=== PATIENT | female | born 1965 | race Caucasian/White ===

== ENCOUNTER 2016-06-21 08:23 | Emergency (ER) | payer OTHER ==
[2016-06-21 08:36] VITALS: BP 160/100; PULSE 109; RESP 20; TEMP 98; O2SAT 94
--- NOTE | 2016-06-21 08:48 | CPEKG ---
Heart Rate: 96 RR Interval: 625 P-R Interval: 136 QRSD Interval: 78 QT Interval: 356 QTC Interval: 450 P Broadway: 41 QRS Broadway: 62 T Wave Broadway: 26 EKG Severity - NORMAL ECG - EKG Impression: SINUS RHYTHM Electronically Signed By: Cm Zapata 21-Jun-2016 09:04:26
[2016-06-21] MEDS ORDERED: ASPIRIN 81 MG CHEWABLE TAB PO ONE (08:55)
[2016-06-21 09:07] LABS: % IMMATURE GRANULYOCYTES 0.5 % (0.0-1.1); ABSOLUTE IMMATURE GRANULOCYTES 0.03 10^3/uL (0.00-0.10); ADD DIFF? NO; ADD MORPH? NO; ADD SCAN? NO; ATYPICAL LYMPHOCYTE FLAG 20 (0-99); FRAGMENT RBC FLAG 0 (0-99); HEMATOCRIT 37.6 % (38.0-47.0); HEMOGLOBIN 11.5 g/dL (12.6-16.3); LEFT SHIFT FLG 0 (0-99); LIPEMIA HEMOLYSIS FLAG 80 (0-99); MEAN CELL HEMOGLOBIN 23.7 pg (27.9-34.1); MEAN CELL HEMOGLOBIN CONCENTR. 30.6 g/dL (32.4-36.7); MEAN CELL VOLUME 77.4 fL (81.5-99.8); MEAN PLATELET VOLUME 10.1 fL (8.7-11.7); PLATELET CLUMPS FLAG 0 (0-99); PLATELET COUNT 270 10^3/uL (150-400); RED BLOOD CELL COUNT 4.86 10^6/uL (4.18-5.33); RED CELL DISTRIBUTION WIDTH 16.3 % (11.5-15.2)
[2016-06-21 09:16] LABS: ALANINE AMINOTRANSFERASE 24 IU/L (9-52); ALKALINE PHOSPHATASE 57 IU/L (38-126); ANION GAP 11 mEq/L (8-16); ASPARTATE AMINOTRANSFERASE 21 IU/L (14-46); BILIRUBIN,TOTAL 0.5 mg/dL (0.1-1.4); CALCIUM 9.1 mg/dL (8.5-10.4); CARBON DIOXIDE 25 mEq/l (22-31); CHLORIDE 106 mEq/L (97-110); CREATININE 0.8 mg/dL (0.6-1.0); GLOMERULAR FILTRATION RATE > 60; GLUCOSE 107 mg/dL (70-100); SODIUM 142 mEq/L (134-144); TOTAL PROTEIN 7.2 g/dL (6.3-8.2)
[2016-06-21 09:29] LABS: TROPONIN I < 0.012 ng/mL (0-0.034)
--- NOTE | 2016-06-21 09:49 | UCPHY ---
H & P Patient Type: New Chief Complaint Nursing Narrative: c/o CP/Lt arm pain rad up to shoulder since Sunday night - has been moving but is concerned it is her heart due to father having [place] Time Seen by Provider: 06/21/16 09:27 HPI/ROS: This patient presents with a chief complaint of chest pain which involves primarily her left shoulder and also the upper left thoracic back. She is concerned about a cardiac event given her family has a history of heart problems. Symptoms began 3 days ago. The pain is not affected by movement of the left upper extremity but she has noticed tenderness in the upper thoracic back on the left. She denies cough, shortness of breath, nausea, vomiting or diaphoresis. She has no some numbness and tingling in the left upper extremity but also in the toes and fingers on the other 3 extremities. There is no relationship of the pain to movement, position or breathing. She denies any pain or swelling in the lower extremities. REVIEW OF SYSTEMS: Constitutional: Fatigue, no fever Eyes: No complaints ENT: Denies sore throat, had denies ear pain, mild congestion Respiratory: No cough, no shortness of breath Cardiac: See above Gastrointestinal: No nausea, no vomiting, no abdominal pain or diarrhea Genitourinary: Not addressed Musculoskeletal: Upper left back pain Skin: No rash Neurological: No headache, paresthesias of the left upper extremity the and the fingers and toes of the other 3 extremities Source: Patient, RN notes reviewed, Old records Exam Limitations: No limitations - Personal History LMP (Females 10-55): Now Current Tetanus Diphtheria and Acellular Pertussis (TDAP): Yes - Medical/Surgical History Other PMH: appy - Family History Significant Family History: Heart disease - Social History Smoking Status: Former smoker - Physical Exam Exam: GENERAL: Well-appearing, well-nourished and in no acute distress. HEAD: Atraumatic, normocephalic. EYES: Pupils equal round and reactive to light, extraocular movements intact, sclera anicteric, conjunctiva are normal. ENT: TMs normal, nares patent, oropharynx clear without exudates. Moist mucous membranes. NECK: Normal range of motion, supple without lymphadenopathy or JVD. No tenderness LUNGS: Breath sounds clear to auscultation bilaterally and equal. No wheezes rales or rhonchi. No chest wall tenderness HEART: Regular rate and rhythm without murmurs, rubs or gallops. ABDOMEN: Soft, nontender, normoactive bowel sounds. No guarding, no rebound. No masses appreciated. EXTREMITIES: Normal range of motion, no pitting or edema. No clubbing or cyanosis. NEUROLOGICAL: Cranial nerves II through XII grossly intact. Normal speech, normal gait. Normal motor function PSYCH: Normal mood, normal affect. SKIN: Warm, dry, normal turgor, no visible rashes or lesions. Back: There is tenderness in the musculature of the upper thoracic area to the left of midline. There is also tenderness of the superior trapezius. Constitutional: Initial Vital Signs Temperature (C) 36.6 C 06/21/16 08:33 Heart Rate 109 H 06/21/16 08:33 Respiratory Rate 20 06/21/16 08:33 Blood Pressure 160/100 H 06/21/16 08:33 O2 Sat (%) 94 06/21/16 08:33 O2 Delivery Mode Room Air Allergies/Adverse Reactions: ibuprofen Allergy (Verified 07/15/12 11:51) Penicillins Allergy (Verified 07/15/12 11:51) Home Medications: Medication Instructions Recorded Miscellaneous Medical Supply [NO 07/15/12 HOME MEDS] Medical Decision Making - Diagnostics EKG Interpretation: An EKG is normal Differential Diagnosis: There are no findings that would suggest a cardiovascular cause for this patient 's pain and I believe that they are related to a musculoskeletal source. I do not believe that she has pneumonia, pulmonary embolus, pneumonia or pneumothorax. - Data Points Laboratory Results: Laboratory Results 06/21/16 08:50 06/21/16 08:50 06/21/16 08:50 WBC 6.02 10^3/uL (3.80-9.50) RBC 4.86 10^6/uL (4.18-5.33) Hgb 11.5 L g/dL (12.6-16.3) Hct 37.6 L % (38.0-47.0) MCV 77.4 L fL (81.5-99.8) MCH 23.7 L pg (27.9-34.1) MCHC 30.6 L g/dL (32.4-36.7) RDW 16.3 H % (11.5-15.2) Plt Count 270 10^3/uL (150-400) MPV 10.1 fL (8.7-11.7) Neut % (Auto) 71.3 % (39.3-74.2) Lymph % (Auto) 18.8 % (15.0-45.0) Schuyler % (Auto) 7.8 % (4.5-13.0) Eos % (Auto) 1.3 % (0.6-7.6) Baso % (Auto) 0.3 % (0.3-1.7) Nucleat RBC Rel Count 0.0 % (0.0-0.2) Absolute Neuts (auto) 4.29 10^3/uL (1.70-6.50) Absolute Lymphs (auto) 1.13 10^3/uL (1.00-3.00) Absolute Monos (auto) 0.47 10^3/uL (0.30-0.80) Absolute Eos (auto) 0.08 10^3/uL (0.03-0.40) Absolute Basos (auto) 0.02 10^3/uL (0.02-0.10) Absolute Nucleated RBC 0.00 10^3/uL (0-0.01) Immature Gran % 0.5 % (0.0-1.1) Immature Gran # 0.03 10^3/uL (0.00-0.10) Sodium 142 mEq/L (134-144) Potassium 4.0 mEq/L (3.5-5.2) Chloride 106 mEq/L (97-110) Carbon Dioxide 25 mEq/l (22-31) Anion Gap 11 mEq/L (8-16) BUN 13 mg/dL (7-23) Creatinine 0.8 mg/dL (0.6-1.0) Estimated GFR > 60 Glucose 107 H mg/dL (70-100) Calcium 9.1 mg/dL (8.5-10.4) Total Bilirubin 0.5 mg/dL (0.1-1.4) AST 21 IU/L (14-46) ALT 24 IU/L (9-52) Alkaline Phosphatase 57 IU/L (38-126) Troponin I < 0.012 ng/mL (0-0.034) Total Protein 7.2 g/dL (6.3-8.2) Albumin 4.0 g/dL (3.5-5.0) Medications Given: Discontinued Medications Aspirin (Aspirin) 81 mg PO EDNOW ONE Stop: 06/21/16 08:56 Last Admin: 06/21/16 08:57 Dose: 81 mg Departure - Departure Disposition: Home, Routine, Self-Care Clinical Impression: Left shoulder pain Qualifiers: Chronicity: acute Qualifier Code: (M25.512) Pain in left shoulder Anemia Qualifiers: Anemia type: unspecified type Qualifier Code: (D64.9) Anemia, unspecified Condition: Good Instructions: Chest Pain (ED) Additional Instructions: If the pain in her shoulder as not resolved in 2 days you should follow-up with your primary care physician. If the meantime your symptoms worsen or you develop any worrisome symptoms you should be seen right away. You have anemia which is new within the past 4 years. The cause of this is unclear at this time but should follow up with your primary care physician for further evaluation. Referrals: Too Smyth MD [Primary Care Provider] - As per Instructions - PQRS PQRS Measurement: Not applicable
== END 2016-06-21 10:15 | disposition home or self-care (01) ==
LOC: CED 08:23
DX: R07.9 Chest pain, unspecified (principal); M25.512 Pain in left shoulder; D64.9 Anemia, unspecified; M54.6 Pain in thoracic spine; Z82.49 Family history of ischemic heart disease and other diseases of the circulatory system; Z87.891 Personal history of nicotine dependence
CPT/HCPCS: 80053-PO; 84484-PO; 85025-PO; 93010-PO; 99205-PO; G0463-PO

== ENCOUNTER → 2017-07-25 | Outpatient (CLI) | payer BC | LOC: FIMAGING 08:50 | PROVIDERS: ATTEND Nurse Practitioner Obstetrics & Gynecology | DX: N64.4 Mastodynia (principal); Z80.3 Family history of malignant neoplasm of breast ==

== ENCOUNTER → 2018-05-08 | Outpatient (CLI) | payer BC ==
[~2018-05-08] MED LIST: GADOBUTROL 10 ML VIAL IVP ONE
== END ==
LOC: FIMAGING 07:30
PROVIDERS: ATTEND Family Medicine
DX: N60.11 Diffuse cystic mastopathy of right breast (principal); N60.12 Diffuse cystic mastopathy of left breast; Z80.3 Family history of malignant neoplasm of breast
CPT/HCPCS: A9585; C8908